=== PATIENT | female | born 1960 | race Caucasian/White ===

== ENCOUNTER 2019-05-18 10:51 | Emergency (ER) | payer BC ==
[2019-05-18 10:56] VITALS: BP 145/82; PULSE 92
[2019-05-18] MEDS ORDERED: diphenhydrAMINE 50 MG/ML SDV IVPUSH ONE (10:56)
--- NOTE | 2019-05-18 10:59 | EDM.PDOC ---
ED HPI GENERAL MEDICAL PROBLEM - General Chief Complaint: Allergic Reaction Stated Complaint: allergic reaction Time Seen by Provider: 05/18/19 10:54 Source of Information: Reports: Patient History Limitations: Reports: No Limitations - History of Present Illness INITIAL COMMENTS - FREE TEXT/NARRATIVE: Patient is a 58 year old female that arrives to the ER very anxious. Patient reports that started about 1 hour ago felt like left side of throat was closing off and swelling. Patient reports that couple weeks ago she got shingles vaccine and since then has been getting hives and swelling to the left side of her body. Patient reports she saw provider on Sunday, prescribed steroids on Sunday, took pill last night and this morning one hour ago had this sensation that brought her to the ER. Patient denies rashes, hives, airway closure, tongue swelling, swelling, pain, chest pain, chest tightness, acid reflux, nausea sensations today. Patient is able to converse in full and complete sentences without difficulty. Onset: Today Onset Date: 05/18/19 Duration: Hour(s): (1) Severity: Mild Improves with: Reports: None Worsens with: Reports: None Associated Symptoms: Denies: Confusion, Chest Pain, Cough, cough w sputum, Diaphoresis, Fever/Chills, Headaches, Loss of Appetite, Malaise, Nausea/Vomiting , Rash, Seizure, Shortness of Breath, Syncope, Weakness - Related Data Allergies Allergy/AdvReac Type Severity Reaction Status Date / Time Penicillins Allergy Airway Verified 05/18/19 10:59 Tightness Sulfa (Sulfonamide Allergy Airway Verified 05/18/19 10:59 Antibiotics) Tightness sulfamethoxazole Allergy Airway Verified 05/18/19 10:59 [From Bactrim] Tightness trimethoprim [From Bactrim] Allergy Airway Verified 05/18/19 10:59 Tightness Home Meds: Home Meds predniSONE [Prednisone] 10 mg PO ASDIRECTED 05/18/19 [History] Past Medical History Other [employer] History: hystorectomy - Past Surgical History HEENT Surgical History: Reports: Oral Surgery Social & Family History - Family History Family Medical History: Noncontributory ED ROS ALLERGIC REACTION - Review of Systems Review Of Systems: See Below Constitutional: Reports: No Symptoms HEENT: Reports: Throat Swelling (left side). Denies: Throat Pain Respiratory: Reports: No Symptoms. Denies: Shortness of Breath, Wheezing, Pleuritic Chest Pain, Cough, Sputum Cardiovascular: Reports: No Symptoms. Denies: Chest Pain Endocrine: Reports: No Symptoms GI/Abdominal: Reports: No Symptoms. Denies: Difficulty Swallowing, Nausea, Vomiting : Reports: No Symptoms Musculoskeletal: Reports: No Symptoms Skin: Reports: No Symptoms. Denies: Cyanosis, Pruritis, Rash Neurological: Reports: No Symptoms Psychiatric: Reports: Anxiety Hematologic/Lymphatic: Reports: No Symptoms Immunologic: Reports: Other ED EXAM GENERAL NO PERIP PULSE - Physical Exam Exam: See Below Exam Limited By: No Limitations General Appearance: Alert, WD/WN, No Apparent Distress, Anxious Eye Exam: Bilateral Eye: Normal Inspection, PERRL Ears: Normal External Exam, Normal Canal, Hearing Grossly Normal, Normal TMs Nose: Normal Inspection, Normal Mucosa, No Blood Throat/Mouth: Normal Inspection, Normal Lips, Normal Teeth, Normal Gums, Normal Oropharynx, Normal Voice, No Airway Compromise. No: Inflammation, Perioral Cyanosis Head: Atraumatic, Normocephalic. No: Facial Swelling Neck: Normal Inspection, Supple, Non-Tender, Full Range of Motion Respiratory/Chest: No Respiratory Distress, Lungs Clear, Normal Breath Sounds, No Accessory Muscle Use Cardiovascular: Normal Peripheral Pulses, Regular Rate, Rhythm, No Edema, No Gallop, No JVD, No Murmur, No Rub GI/Abdominal: Soft, Non-Tender Back Exam: Normal Inspection Extremities: Normal Inspection, Normal Range of Motion, Non-Tender, No Pedal Edema, Normal Capillary Refill Neurological: Alert, Oriented Psychiatric: Anxious Skin Exam: Warm, Dry, Intact, Normal Color, No Rash Lymphatic: No Adenopathy Course - Vital Signs Last Recorded V/S: Last Vital Signs Temp 98.1 F 05/18/19 10:54 Pulse 92 05/18/19 10:54 Resp 20 05/18/19 10:54 BP 145/82 H 05/18/19 10:54 Pulse Ox 100 05/18/19 10:54 - Orders/Labs/Meds Meds: Medications Discontinued Medications Generic Name Dose Route Start Last Admin Trade Name Freq PRN Reason Stop Dose Admin Diphenhydramine HCl 25 mg 05/18/19 10:56 05/18/19 11:05 Benadryl IVPUSH 05/18/19 10:57 25 mg ONETIME ONE Administration - Re-Assessments/Exams Free Text/Narrative Re-Assessment/Exam: 05/18/19 11:22 Patient has refused steroids in ER. 05/18/19 12:59 patient does report she is feeling a little better and swelling sees less. She reports ready to go home. Departure - Departure Time of Disposition: 13:00 Disposition: Home, Self-Care 01 Condition: Fair Clinical Impression: Allergic reaction Qualifiers: Encounter type: initial encounter Qualified Code(s): T78.40XA - Allergy, unspecified, initial encounter - Discharge Information *PRESCRIPTION DRUG MONITORING PROGRAM REVIEWED*: Not Applicable *COPY OF PRESCRIPTION DRUG MONITORING REPORT IN PATIENT MARI: Not Applicable Instructions: Anaphylactic Reaction, Adult Forms: ED Department Discharge Additional Instructions: Followup with your primary care provider Return to the ER for worsening of condition or any emergent concerns Increase fluids Stop steroids Start Benadryl at home every 6 hours as needed for allergic reaction Sepsis Event Note - Evaluation Sepsis Screening Result: No Definite Risk - Focused Exam Vital Signs: Vital Signs Temp Pulse Resp BP Pulse Ox 05/18/19 10:54 98.1 F 92 20 145/82 H 100 Date Exam was Performed: 05/18/19 Time Exam was Performed: 12:59 - Assessment/Plan Plan: PLEASE SEE RN NOTE FOR PFSH.
== END 2019-05-18 13:14 | disposition home or self-care (01) ==
LOC: CC.ED 10:51
DX: T78.40XA Allergy, unspecified, initial encounter (principal); Z88.0 Allergy status to penicillin; Z88.2 Allergy status to sulfonamides
CPT/HCPCS: 96374; 99283-25; J1200

== ENCOUNTER 2020-08-28 09:08 | Emergency (ER) | payer BC ==
[2020-08-28 09:15] VITALS: BP 146/83; PULSE 100
--- NOTE | 2020-08-28 09:30 | EDM.PDOC ---
ED HPI GENERAL MEDICAL PROBLEM - General Chief Complaint: General Stated Complaint: HIVES Time Seen by Provider: 08/28/20 09:15 Source of Information: Reports: Patient History Limitations: Reports: No Limitations - History of Present Illness INITIAL COMMENTS - FREE TEXT/NARRATIVE: Cheri is a 59 year old female who presents today with ongoing hives. Patient relates she has had intermittent issues with this off an on since she was a teenager. Has had allergy testing, been seen by allergists and unable to find out what the cause has been. She had a bad reaction last year and was thought to be from the flu shot but has not had that since. Was seen by Catie Scott yesterday as she awoke with hives. Was given Depo Medrol and has been taking one Benadryl and one Zyrtec every 4 hours. Does admit that her facial hives are better but she continues to have diffuse hives that are very pruritic. States "unsure if having any breathing issues as so dried out from all the meds". Is worried about her "throat closing off". Does admit that she has been able to drink fluids this am. Onset: Gradual Duration: Day(s):, Constant Location: Reports: Generalized Associated Symptoms: Denies: Confusion, Chest Pain, Cough, Fever/Chills, Headaches, Nausea/Vomiting, Shortness of Breath Treatments [employer]: Reports: Other Medication(s) Other Treatments [employer] BREAST: Benadryl, Zyrtec, Depo medrol - Related Data Allergies Allergy/AdvReac Type Severity Reaction Status Date / Time Penicillins Allergy Airway Verified 08/28/20 09:15 Tightness Sulfa (Sulfonamide Allergy Airway Verified 08/28/20 09:15 Antibiotics) Tightness sulfamethoxazole Allergy Airway Verified 08/28/20 09:15 [From Bactrim] Tightness trimethoprim [From Bactrim] Allergy Airway Verified 08/28/20 09:15 Tightness Home Meds: Home Meds EPINEPHrine [Epipen Jr] 1 injection IM ASDIRECTED PRN 08/28/20 [History] diphenhydrAMINE HCL [Benadryl Allergy] 1 tab PO ASDIRECTED PRN 08/28/20 [History] Past Medical History Gastrointestinal History: Reports: None Other CLINICAL PHARMACY SPECIALIST History: hystorectomy Dermatologic History: Reports: Other (See Below) Other Dermatologic History: Hives - seasonally - Past Surgical History HEENT Surgical History: Reports: Oral Surgery Other HEENT Surgeries/Procedures: jaw surgery GI Surgical History: Reports: Cholecystectomy Dermatological Surgical History: Reports: Other (See Below) Social & Family History - Family History Family Medical History: No Pertinent Family History - Tobacco Use Tobacco Use Status *Q: Never Tobacco User Second Hand Smoke Exposure: No - Caffeine Use Caffeine Use: Reports: None - Recreational Drug Use Recreational Drug Use: No ED ROS GENERAL - Review of Systems Review Of Systems: See Below Constitutional: Denies: Fever, Chills, Malaise, Weakness, Fatigue HEENT: Denies: Ear Pain, Throat Pain Respiratory: Denies: Shortness of Breath Cardiovascular: Denies: Chest Pain, Edema, Lightheadedness Endocrine: Reports: Fatigue GI/Abdominal: Denies: Abdominal Pain, Nausea, Vomiting : Reports: No Symptoms Musculoskeletal: Reports: No Symptoms Skin: Reports: Urticaria Neurological: Reports: No Symptoms Psychiatric: Reports: No Symptoms ED EXAM, GENERAL - Physical Exam Exam: See Below Exam Limited By: No Limitations General Appearance: Alert, WD/WN, No Apparent Distress Ears: Normal External Exam, Normal TMs Nose: Normal Inspection, Normal Mucosa, No Blood Throat/Mouth: Normal Inspection, Normal Oropharynx Head: Normocephalic Neck: Normal Inspection, Supple, Non-Tender Respiratory/Chest: No Respiratory Distress, Lungs Clear, Normal Breath Sounds Cardiovascular: Tachycardia Extremities: Other (diffuse hives scattered throughout arms, legs, abdomen and back) Neurological: Alert, Oriented Skin Exam: Warm, Dry Course - Vital Signs Last Recorded V/S: Last Vital Signs Temp 97.4 F 08/28/20 09:14 Pulse 100 08/28/20 09:14 Resp 18 08/28/20 09:14 BP 146/83 H 08/28/20 09:14 Pulse Ox 96 08/28/20 09:14 Departure - Departure Time of Disposition: 09:32 Disposition: Home, Self-Care 01 Condition: Good Clinical Impression: Urticaria - Discharge Information *PRESCRIPTION DRUG MONITORING PROGRAM REVIEWED*: No *COPY OF PRESCRIPTION DRUG MONITORING REPORT IN PATIENT MARI: No Instructions: Hives Additional Instructions: 1. Push fluids 2. Continue with Benadryl and Zyrtec as needed 3. Prednisone 40 mg daily for 3 days 4. Hydroxyzine 25 mg three times a day as needed for itching 5. Follow up if persisting concerns. Sepsis Event Note (ED) - Evaluation Sepsis Screening Result: No Definite Risk - Focused Exam Vital Signs: Vital Signs Temp Pulse Resp BP Pulse Ox 08/28/20 09:14 97.4 F 100 18 146/83 H 96
== END 2020-08-28 09:41 | disposition home or self-care (01) ==
LOC: CC.ED 09:08
DX: L50.9 Urticaria, unspecified (principal); Z88.0 Allergy status to penicillin; Z88.2 Allergy status to sulfonamides; Z88.1 Allergy status to other antibiotic agents
CPT/HCPCS: 99282